=== PATIENT | male | born 1985 | race African-American/Black ===

== ENCOUNTER 2021-05-31 11:54 | Inpatient (IN) | payer OTHER ==
[~2021-05-31] VITALS: Ht 193 cm; Wt 98.0 kg
[2021-05-31 11:59] VITALS: BP 124/70
[2021-05-31 12:43] LABS: HEMATOCRIT 39.4 % (42.0-52.0); MCH 30.7 pg (26.0-34.0); RBC 4.24 mil/uL (4.50-6.00)
[2021-05-31 12:53] LABS: CALCIUM 9.1 mg/dL (8.5-10.1); CREATININE 1.1 mg/dL (0.7-1.3); POTASSIUM 3.6 mmol/L (3.5-5.1)
[2021-05-31 12:59] LABS: TOTAL BILIRUBIN 0.7 mg/dL (0.2-1.0); TOTAL PROTEIN 7.8 g/dL (6.4-8.2)
[2021-05-31 14:15] LABS: URINE BILIRUBIN NEGATIVE (Negative); URINE BLOOD TRACE (Negative); URINE CLARITY CLEAR; URINE COLOR YELLOW; URINE GLUCOSE-RANDOM* NEGATIVE (Negative); URINE KETONES 3+ (Negative); URINE LEUKOCYTES-REFLEX NEGATIVE (Negative); URINE NITRITE-REFLEX NEGATIVE (Negative); URINE PROTEIN (DIPSTICK) NEGATIVE (Negative); URINE UROBILINOGEN 0.2 E.U./dl (0.2-1.0)
[2021-05-31 14:20] LABS: URINE REDUCING SUBSTANCE NEGATIVE
[2021-05-31 16:05] VITALS: BP 139/79
[2021-05-31 18:40] VITALS: BP 124/75
[2021-05-31 20:33] VITALS: BP 125/74
--- NOTE | 2021-06-01 00:27 | NUR ---
ASSESSED AT START OF SHIFT, PT RESTING IN BED. HYDROCODONE GIVEN FOR PAIN. 3 LAP SITES INTACT WITH DERMABOUND. DENIES N/V. RACHEL PO FLUIDS. CALL LIGHT AT REACH AND NO FURTHER SIGNS OF DISCOMFORT WILL CONT TO MONITOR. ANTICIPATING D/C TOMORROW.
[2021-06-01 04:05] VITALS: BP 134/62
[2021-06-01 07:16] VITALS: BP 119/57
--- NOTE | 2021-06-01 09:34 | NUR ---
A/O X 4. ROOM AIR. AD AB. LEFT AC IV DRESSING DRY, CLEAN, INTACT, SALINE LOCKED. 3 ABD SURGICAL LAPSITE WITH STERI STRIPS IN PLACE-DRY, CLEAN, INTACT. PAIN PAIN 12/13 NORCO GIVEN @ 0825. NO N/V NOTED.
[2021-06-01] MEDS ORDERED: NORCO5 PO (11:39)
[2021-06-01 11:46] VITALS: BP 119/57
--- NOTE | 2021-06-03 12:27 | O ---
[facility] [place] [address] OPERATIVE REPORT Name: DIAN CASAREZ Room #: 439-P [facility] IN M.R.#: [id number] Admission: 05/31/21 Attend Phys: Jorge Lane, Discharge: 06/01/21 Date of : 83 Report #: [id number] THIS REPORT FOR: cc: NO FAMILY PHYSICIAN or PCP NO FAMILY PHYSICIAN or PCP Jorge Lane MD ~ DATE OF SERVICE: 05/31/2021 PREOPERATIVE DIAGNOSIS: Acute appendicitis. POSTOPERATIVE DIAGNOSIS: Acute appendicitis. OPERATION: Laparoscopic appendectomy. SURGEON: Jorge Lane M.D. ANESTHESIA: General. ESTIMATED BLOOD LOSS: Minimal. SPECIMENS: Appendix. DESCRIPTION OF PROCEDURE: After informed consent was obtained, the patient was brought to the operating room and placed supine. SCDs were placed and working, preoperative antibiotics were administered, general anesthesia was induced. The abdomen was prepped and draped in the usual sterile fashion. A 10 mm incision was made below the umbilicus. Fascia was incised and a trocar was placed. Pneumoperitoneum was established. Right upper quadrant and left lower quadrant 5 mm trocars were placed. The appendix was grasped and retracted anteriorly. A window was made in the mesoappendix. The mesoappendix was then ligated using a SALLY sandoval load stapler. The base of the appendix was then stapled off with a SALLY blue load stapler. The appendix was placed into an Endopouch and removed. The fascia was closed with a [id number] 0 Vicryl. Skin was closed with 4-0 Monocryl. Incisions were dressed with Steri-Strips. COMPLICATIONS: None. DISPOSITION: The patient was taken to recovery in satisfactory condition. <ELECTRONICALLY SIGNED> By: Jorge Lane MD 06/03/[id number] MD /nt
--- NOTE | 2021-06-05 11:07 | PATH ---
[facility] [address] [address] PATHOLOGY RPT PROCEDURE Name: HERMELINDODAIN M Room #: 439-P [facility] IN M.R.#: [id number] Admission: 05/31/21 Date of : 83 Discharge: 06/01/21 Report #: [id number] Path Case #: [id number] [facility] Accession Number: [id number] . 01 Material submitted: . appendix - APPENDIX . 01 Clinical history: . LAPAROSCOPIC APPENDECTOMY ACUTE APPENDICITIS . 01 Diagnosis: Appendix "appendix, appendectomy": - Acute suppurative appendicitis. (SHA:tere; 06/04/2021) [facility] 06/04/2021 0937 Local . 01 Electronically signed: . Adair Larsen MD, Pathologist NPI- [id number] . 01 Gross description: . Fixative: Formalin Labeled: Appendix Appendix length: 7.5 cm Appendix diameter: 0.9-1.1 cm Mesoappendix: 1.4 cm Proximal margin: Stapled Serosa: Pale mace with moderate vasculature, as well as overlying adhesions near the proximal margin Cut surface: Patent to slightly dilated Luminal diameter: Up to 0.4 cm Perforation: None identified Lesions/abnormalities: None identified . Proximal margin and bisected tip in cassette A1. Additional visitor services representative cross-sections in cassette A2. (CAA; 06/03/2021) [facility] 06/03/2021 0941 Local . 01 Pathologist provided ICD-10: K35.80 . 01 CPT . 652207 Specimen Comment: A courtesy copy of this report has been sent to [phone] Specimen Comment: Report sent to [address] [address] PATHOLOGY RPT PROCEDURE Name: DIAN CASAREZ Room #: 439-P [facility] IN [facility]#: [id number] Admission: 05/31/21 Date of : 83 Discharge: 06/01/21 Report #: [id number] Path Case #: [id number] Specimen Comment: A duplicate report has been generated due to demographic updates. Performed at: 01 [facility] [address], [place], [place] [id number] MD Adair Larsen MD Phone: [phone]
== END 2021-06-01 12:45 | disposition home or self-care (01) | DRG 343 ==
LOC: ER 11:54 → EROBS 14:41 → TBA 14:41 → 4S 18:24
PROVIDERS: Emergency Medicine; ADMIT Surgery; ATTEND Surgery
PROC: 0DTJ4ZZ Resection of Appendix, Percutaneous Endoscopic Approach (ICD-10-PCS; principal; 2021-05-31)
DX: K35.80 Unspecified acute appendicitis (principal); G43.909 Migraine, unspecified, not intractable, without status migrainosus; F12.90 Cannabis use, unspecified, uncomplicated; Z20.822 Contact with and (suspected) exposure to COVID-19; Z87.891 Personal history of nicotine dependence
CPT/HCPCS: 10195; 50101; 50411; 50555; 50739; 50740; 52265; 52266; 53307; 53312; 53314; 56525; 56526; 58574; 58867; 62110; 62900; 70005